=== PATIENT | male | born 1980 | race Caucasian/White ===

== ENCOUNTER 2018-08-15 16:12 | Emergency (ER) | payer BC, OTHER ==
[~2018-08-15] VITALS: Ht 182.9 cm; Wt 93.0 kg
--- NOTE | 2018-08-15 16:48 | RAD ---
Right finger x-rays 3 views HISTORY: 34th finger injury and pain. FINDINGS: Acute traumatic distracted transverse fracture of the third distal phalangeal tuft and abnormality the overlying nail which is mildly distracted. No dislocation. No fracture of the fourth digit phalanges. IMPRESSION: Acute traumatic fracture of the third distal phalangeal tuft. Electronically signed by: Saroj Lomeli MD (08/15/2018 4:44 PM) [facility]
[2018-08-15] MEDS ORDERED: IBUPROFEN 800 MG TABLET. PO ONE (17:00)
[2018-08-15] MEDS ORDERED: DIPHTH,PERTUSS(ACELL),TET TOX 0.5 ML DISP.SYRIN. VAX IM ONE (17:00)
[2018-08-15] MEDS ORDERED: CEPH-264 PO (17:12)
[2018-08-15] MEDS ORDERED: IBUP800T19 PO (17:12)
[2018-08-15] MEDS ORDERED: HYDR-3165 PO (17:12)
--- NOTE | 2018-08-15 17:12 | PHYS DOC ---
Adult General Chief Complaint Chief Complaint: FINGER INJURY HPI HPI Patient is a 37 year old right-handed male who presents with complaining of right medial and fourth finger injury after dropping a heavy metal on his hand while he was at work prior to arrival to ER. Patient complaining of laceration and nail injury without focal neuro deficit. Patient is not up-to-date with tetanus immunization. Review of Systems Review of Systems Constitutional: Denies fever or chills [] Eyes: Denies change in visual acuity, redness, or eye pain [] HENT: Denies nasal congestion or sore throat [] Respiratory: Denies cough or shortness of breath [] Cardiovascular: No additional information not addressed in HPI [] GI: Denies abdominal pain, nausea, vomiting, bloody stools or diarrhea [] : Denies dysuria or hematuria [] Musculoskeletal: Denies back pain, reports joint pain [] Integument: Denies rash or skin lesions [] Neurologic: Denies headache, focal weakness or sensory changes [] Endocrine: Denies polyuria or polydipsia [] All other systems were reviewed and found to be within normal limits, except as documented in this note. Current Medications Current Medications Current Medications Medications (Trade) Dose Ordered Sig/Tommy Start Time Stop Time Status Last Admin Dose Admin Diphtheria/ Tetanus/Acell Pertussis (Boostrix) 0.5 ml ONCE ONCE 08/15/18 17:00 08/15/18 17:01 08/15/18 16:48 0.5 ML Ibuprofen (Motrin) 800 mg 1X ONCE 08/15/18 17:00 08/15/18 17:01 Allergies Allergies Allergies Coded Allergies Type Severity Reaction Last Updated Verified No Known Drug Allergies 08/15/18 No Physical Exam Physical Exam Constitutional: Well developed, well nourished, mild distress, non-toxic appearance. [] HENT: Normocephalic, atraumatic Eyes: PERRLA, EOMI, conjunctiva normal, no discharge. [] Neck: Normal range of motion, no tenderness, supple, no stridor. [] Cardiovascular:Heart rate regular rhythm, no murmur [] Lungs & Thorax: Bilateral breath sounds clear to auscultation [] Skin: Warm, dry, no erythema, no rash. [] Back: No tenderness, no CVA tenderness. [] Extremities: Right hand feet injury and some ungual hematoma of right middle fingernail with nail out of nail bed. Small superficial laceration in lateral side of middle finger, tenderness in nail bed and distal phalanx of middle finger, superficial laceration of right fourth finger in fingertip with mild tenderness, no cyanosis, no clubbing, full range of motion. Left upper extremity with short radial and ulnar and phocomelia. Neurologic: Alert and oriented X 3, normal motor function, normal sensory function, no focal deficits noted. [] Psychologic: Affect normal, judgement normal, mood normal. [] EKG EKG [] Radiology/Procedures Radiology/Procedures [address] [address] IMAGING REPORT Signed PATIENT: MORGAN PATTEN ACCOUNT: [id number] : 1980 LOCATION: ER AGE: 37 SEX: M EXAM STATUS: PRE ER ORD. PHYSICIAN: JOO HERNANDEZ MD REASON: Third and fourth finger injury, caught in truck gate lift PROCEDURE: FINGER(S) RIGHT Right finger x-rays 3 views HISTORY: 34th finger injury and pain. FINDINGS: Acute traumatic distracted transverse fracture of the third distal phalangeal tuft and abnormality the overlying nail which is mildly distracted. No dislocation. No fracture of the fourth digit phalanges. IMPRESSION: Acute traumatic fracture of the third distal phalangeal tuft. Electronically signed by: Jamie Lomeli MD (08/15/2018 4:44 PM) [facility] DICTATED AND SIGNED BY: JAMIE LOMELI MD DATE: 08/15/18 [id number] CC: SAULO JULIEN DO; JOO HERNANDEZ MD ~ Course & Med Decision Making Course & Med Decision Making Pertinent Imaging studies reviewed. (See chart for details) Evaluation of patient in ER showed 37-year-old male patient injury to right medial and fourth finger patient had distal phalanx fracture of middle finger. Middle finger nail was placed in nail bed with digital and focal anesthesia. 2 small laceration of medial and fourth finger was repaired with Dermabond. Medial finger splint was applied and patient instructed to follow-up with on- call orthopedic physician Dr. Pastor tomorrow. Patient treated with antibiotic and pain medication in ER and Tdap was given. Dragon Disclaimer Dragon Disclaimer This electronic medical record was generated, in whole or in part, using a voice recognition dictation system. Laceration Repair Lac Repair Indication: Right fourth finger laceration Procedure: The patient was placed in the appropriate position after cleaning the floor 1 cm superficial laceration of right fourth finger tip was repaired with Dermabond. Total repaired wound length: 1 cm +0.5 cm Other Items: [Superficial laceration of lateral side of right middle finger was repaired with Dermabond. The patient tolerated the procedure well Complications: none. Subungual Hematoma Procedure Indication: Right medial nail out of nail bed Procedure: The patients hand was placed in the appropriate position. Anesthesia was as a digital block of middle finger and around nail bed and nail was placed in the nailbed. The patient tolerated the procedure well Complications: none Departure Departure: Impression: Primary Impression: Open fracture of distal phalanx of right middle finger Additional Impressions: Laceration of right ring finger Subungual hematoma of finger of right hand Disposition: 01 HOME, SELF-CARE (at 1708) Condition: IMPROVED Referrals: SAULO JULIEN DO (PCP) Patient Instructions: Finger Fracture (Phalangeal)-SportsMed, Fingertip Laceration Additional Instructions: Follow-up with telephone services sales representative orthopedic physician in 2 days, call to make an appointment tomorrow Apply ice on the affected area Return to ER if not getting better Scripts Hydrocodone Bit/Acetaminophen (NORCO 5-325 TABLET) 1 Each Tablet 1 TAB PO PRN Q6HRS PRN for PAIN, #20 TAB 0 Refills Prov: JOO HERNANDEZ MD 08/15/18 Cephalexin (KEFLEX) 500 Mg Capsule 2 CAP PO Q12HR for infection, #28 CAP Prov: JOO HERNANDEZ MD 08/15/18 Ibuprofen (IBUPROFEN) 800 Mg Tablet 1 TAB PO TID for pain, #30 TAB Prov: JOO HERNANDEZ MD 08/15/18 Problem Qualifiers JOO HERNANDEZ MD Aug 15, 2018 17:12
[2018-08-15] MEDS ORDERED: CEPHALEXIN 250 MG CAPSULE PO ONE (17:30)
[2018-08-15] MEDS ORDERED: HYDROcodone/APAP 5/325MG 1 TAB TABLET PO ONE (17:30)
== END 2018-08-15 17:36 | disposition home or self-care (01) ==
LOC: ER 16:12
DX: S62.632B Displaced fracture of distal phalanx of right middle finger, initial encounter for open fracture (principal); S61.214A Laceration without foreign body of right ring finger without damage to nail, initial encounter; W20.8XXA Other cause of strike by thrown, projected or falling object, initial encounter; Y93.89 Activity, other specified; Y92.89 Other specified places as the place of occurrence of the external cause; Y99.8 Other external cause status
CPT/HCPCS: 11760; 12001; 29125; 29130; 73140; 90471; 90715; 99284-25